=== PATIENT | male | born 1990 ===

== ENCOUNTER 2018-01-03 06:32 | Inpatient (IN) | payer MEDICAID, OTHER ==
[2018-01-03 06:35] VITALS: BMI 25.8
--- NOTE | 2018-01-03 07:08 | ED PDOC ---
Arrival/HPI - General Chief Complaint: Psychiatric Evaluation Time Seen by Provider: 01/03/18 06:58 - History of Present Illness Narrative History of Present Illness (Text): 01/03/18 07:01 27 y/o M w/ h/o substance(cocaine) abuse presenting to the Emergency Department as a transfer from [facility] for psychiatric stabilization. The patient presented on 01/02/18 with feelings of depression after a cocaine binge. He was noted to have acute signs of cocaine intoxication and noted to possess thoughts of suicidal ideation. He was medical cleared signing voluntary consent for transfer to [facility] for psychiatric stabilization. The patient complains of no chest pain, shortness of breath, headaches, nausea/emesis, abdominal pain, back pain or any other somatic complaints at this time. Time/Duration: Prior to Arrival Symptom Onset: Sudden Symptom Course: Unchanged Activities at Onset: Rest Context: Other (Transfer from outside hospital) Past Medical History - Provider Review Nursing Documentation Reviewed: Yes - Travel History Have you recently traveled outside [place] w/in the past 3 mons?: No - Psychiatric Hx Substance Use: Yes (cocaine) - Anesthesia Hx Anesthesia: No Family/Social History - Physician Review Nursing Documentation Reviewed: Yes Family/Social History: No Known Family HX Smoking Status: Never Smoked Hx Alcohol Use: Yes Frequency of alcohol use: Socially Hx Substance Use: Yes (cocaine) Allergies/Home Meds Allergies/Adverse Reactions: Allergies No Known Allergies Allergy (Verified 01/03/18 06:35) Home Medications: Home Meds Medication Instructions Recorded Confirmed No Known Home Med 01/03/18 01/03/18 Review of Systems - Physician Review All systems were reviewed & negative as marked: Yes - Review of Systems Constitutional: absent: Fevers Eyes: absent: Vision Changes Respiratory: absent: SOB Cardiovascular: absent: Chest Pain Gastrointestinal: absent: Abdominal Pain Musculoskeletal: absent: Back Pain, Myalgias Skin: absent: Rash Neurological: absent: Headache, Dizziness Psychiatric: absent: Anxiety Physical Exam Vital Signs Reviewed: Yes Vital Signs Temp Pulse Resp BP Pulse Ox 01/03/18 06:36 98.0 F 78 18 132/94 H 100 Temperature: Afebrile Blood Pressure: Normal Pulse: Regular Respiratory Rate: Normal Appearance: Positive for: Well-Appearing, Non-Toxic, Comfortable Mental Status: Positive for: Alert and Oriented X 3 - Systems Exam Head: Present: Atraumatic, Normocephalic Pupils: Present: PERRL Extroacular Muscles: Present: EOMI Conjunctiva: Present: Normal Mouth: Present: Moist Mucous Membranes Neck: Present: Normal Range of Motion. No: Paraspinal Tenderness Respiratory/Chest: Present: Clear to Auscultation, Good Air Exchange. No: Respiratory Distress, Accessory Muscle Use Cardiovascular: Present: Regular Rate and Rhythm, Normal S1, S2. No: Murmurs Abdomen: Present: Normal Bowel Sounds. No: Tenderness, Distention Upper Extremity: Present: Normal Inspection. No: Cyanosis, Edema Lower Extremity: Present: Normal Inspection. No: Edema Neurological: Present: GCS=15, CN II-XII Intact, Speech Normal Skin: Present: Warm, Dry, Normal Color. No: Rashes Psychiatric: Present: Alert, Oriented x 3, Normal Concentration Medical Decision Making ED Course and Treatment: 01/03/18 07:11 Progress Notes Review of forms show patient has no medical history with no acute somatic complaints at this time. He is stable for psychiatric transfer to the floor. Disposition/Present on Arrival - Present on Arrival Any Indicators Present on Arrival: No History of DVT/PE: No History of Uncontrolled Diabetes: No Urinary Catheter: No History of Decub. Ulcer: No History Surgical Site Infection Following: None - Disposition Have Diagnosis and Disposition been Completed?: Yes Diagnosis: Depression, Suicidal ideation, Substance abuse Disposition: HOSPITALIZED Disposition Time: 07:00 Patient Plan: Admission Condition: STABLE Discharge Instructions (ExitCare): Depression, Adult (DC)
[2018-01-03 07:59] VITALS: O2SAT 99
[2018-01-03] MEDS ORDERED: Magnesium Hydroxide Susp 30 ml UD PO PRN (10:44)
[2018-01-03] MEDS ORDERED: Alum-Mag Hydrox-Simethicone Susp (30 mL) PO PRN (10:44)
--- NOTE | 2018-01-03 12:27 | PCM.BM ---
<Barrett Butler - Last Filed: 01/03/18 12:23> Treatment Plan Problems - Problems identified on initial assessmt Hopelessness/helplessness Date Initiated: 01/03/18 Time Initiated: 09:00 Assessment reference: NA Status: Active Priority: 1 Comment: Feeling depressed Ineffective coping Date Initiated: 01/03/18 Time Initiated: 09:00 Assessment reference: NA Status: Active Priority: 2 Comment: Unable to cope with living situation and stresses Medication nonadhereance Date Initiated: 01/03/18 Time Initiated: 09:00 Assessment reference: NA Status: Active Priority: 3 Comment: No taking medication Drug abuse Date Initiated: 01/03/18 Time Initiated: 09:00 Assessment reference: NA Status: Active Priority: 4 Comment: Cocain and marijuana Treatment assets and liabiliti Patient Assests: ADL independent, negotiates basic needs Patient Liabilities: live alone, poor support system, substance abuse - Milieu Protocol Maintain good personal hygiene: daily Encourage regular showers, daily Assist patient to perform ADL's, every shift Remind patient to perform daily oral care Conduct patient checks and document Observation sheet: Q15 minutes Maintain personal safety: every shift Educate patient to report safety concerns to staff, every shift Monitor environment for contraband/sharps Medication safety: Monitor for expected outcome, potential side effects: every shift, Assess barriers to learning: every shift, Assess readiness for medication education: every shift Discharge/Continuing Care - Education Needs Education Needs: Patient Medication, Patient Diagnosis/Disease Process, Patient Coping Skills, Patient Anger Management skills, Patient Placement options, Patient Community resources, Patient Activities of Daily Living, Patient Nutrition, Patient Health Practices/Safety, Patient Personal Hygiene/Grooming, Patient Aftercare Safety Plan - Discharge Discharge Criteria: Tolerates medication w/o severe side effects, Normal sleep pattern, Ability to care for self, Reduction of target symptoms <Ness Murillo - Last Filed: 01/03/18 14:06> - Diagnosis (1) Depression Status: Acute Interventions: 01/03/18 14:03 Psychoeducation Psychopharmacology/adjustment of medications as needed/ monitoring possible side effects Evaluate pt on daily basis Compliance with medications and follow up appointments Suicide and homicide risk assessment and prevention Relapse prevention Reduction of symptoms Improve functional status Family involvement As outpatient: cognitive behavioral therapy (2) Substance abuse Status: Acute Interventions: 01/03/18 14:05 Monitoring withdrawal symptoms Medical detoxification Pharmacotherapy for alcohol/benzos/opioid dependence Maintaining sobriety Relapse prevention Possible rehabilitation Motivational interviewing 12-step programs: AA meetings
--- NOTE | 2018-01-03 14:02 | PCM.PSYCH ---
Initial Psychiatric Evaluation - Initial Psychiatric Evaluation Type of Admission: Voluntary Legal Status: Capacity (Patient has capacity to sign consent for treatment) Chief Complaint (in patient's own words): "I am here because I am feeling depressed, I don't want to talk now.." Patient's Reaction to Hospitalization: pt was admitted for evaluation of depressive symptoms, possible suicidal ideation, inability to function. History of Present Illness and Precipitating Events: shortly pt is 27 year old male With not known previous psychiatric history, patient was transferred from [facility] for evaluation of depressive symptoms, possible suicidal ideation, patient has history of cocaine and marijuana abuse and dependence, transfer was uneventful, patient requires further evaluation and stabilization and medications titration. Patient was seen and examined, presented to be disheveled, patient refused to participate in treatment team meeting, patient presented to be irritable, annoyed, disengaged. Poor ADLs. Majority of the information was taken from [facility] record. As per record patient was brought to [facility] by the [facility] after she was found walking the streets under the influence of drugs. In the emergency room patient reported being "hopeless, not having a reason to leave". Patient also reported that he has suicidal ideation but denied any plan or intent to kill himself. past psych h/o: unknown, unknown h/o suicidal attempts. medical h/o: pt was seen by medical team in [facility] and in [facility] ED, no acute medical issues. family h/o: unknown. social h/o: pt currently homeless, using marijuana and cocaine, unknown nicotine abuse. labs WNL UA showed blood, will call med consult cocaine and THC positive vitals are stable. EKG NSR Temp Pulse Resp BP Pulse Ox 98 F 75 17 129/87 99 01/03/18 07:57 01/03/18 07:57 01/03/18 09:00 01/03/18 07:57 01/03/18 07:57 The patient failed the outpatient lower level of care: Yes Current Medications: none Present on Admission - Present on Admission Any Indicators Present on Admission: No Review of Systems - Review of Systems Systems not reviewed;Unavailable: Acuity of Condition - Constitutional Constitutional: As Per HPI - EENT Eyes: As Per HPI Ears: As Per HPI Nose/Mouth/Throat: As Per HPI - Cardiovascular Cardiovascular: As Per HPI - Respiratory Respiratory: As Per HPI - Gastrointestinal Gastrointestinal: As Per HPI - Genitourinary Genitourinary: As Per HPI - Reproductive: Male Reproductive:Male: As Per HPI - Musculoskeletal Musculoskeletal: As Per HPI - Integumentary Integumentary: As Per HPI - Neurological Neurological: As Per HPI - Psychiatric Psychiatric: As Per HPI - Endocrine Endocrine: As Per HPI - Hematologic/Lymphatic Hematologic: As Per HPI Past Patient History - Past Psychiatric History Prior Professional Help: unknonw Prior Psychiatric Treatment: unknonw At [facility] hospital: unknonw Duration: unknonw Nature of Treatment: unknonw Explanation of prior treatment: unknonw - PSYCHIATRIC Hx Psychophysiologic Disorder: Yes (substance abuse, pt refused to participate in interview) Hx Substance Use: Yes (cocaine) - SURGICAL HISTORY Hx Surgeries: No - ANESTHESIA Hx Anesthesia: No - Medical/Surgical History Reviewed & confirmed: by ga Meds Allergies/Adverse Reactions: Allergies Allergy/AdvReac Type Severity Reaction Status Date / Time No Known Allergies Allergy Verified 01/03/18 06:35 Mental Status Examination - Personal Presentation Personal Presentation: Looks stated age - Affect Affect: Flat - Motor Activity Motor Activity: Psychomotor Retardation - Reliability in Providing Information Reliability in Providing Information: Other (refused to talk) - Speech Speech: Organized - Mood Mood: Depressed - Cognitive Functions Orientation: Person Sensorium: Drowsy Attention/Concentration: Easily distracted Abstract Thinking: [place] Estimate of Intelligence: Below average Judgement: Intact, as evidence by: Insight regarding need for hospitalization - Risk Risk: Suicidal, Withdrawal, Self-mutilation, Diminished functioning - Strength & Assets Inventory Strength & Assets Inventory: Other (pt is relatively healthy, no major medical issues) - Limitations Limitations: Other (poor social support, substance abuse, homelessness) Psychiatric Physical Exam - Physical Exam Reviewed and confirmed: Emergency Department Physical Exam Results - Vital Signs Recent Vital Signs: Last Vital Signs Temp 98 F 01/03/18 07:57 Pulse 75 01/03/18 07:57 Resp 19 01/03/18 07:57 BP 129/87 01/03/18 07:57 Pulse Ox 99 01/03/18 07:57 - EKG Data EKG Interpreted by: ER Physician EKG shows normal: Sinus rhythm DSM Plan - DSM 5 DSM 5 Diagnosis: r/o MDD r/o substance induced mood disorder cocaine abuse/cannabis abuse - Recommended/Plan of Treatment Treatment Recommendations and Plan of Treatment: Milieu/structure/supportive therapy Medical consult will be called, UA showed blood SW consultation for discharge plan and social issues Med management, will start PRN meds Family involvement Follow up on labs Will monitor closely Pt was educated about risk/benefits and alternatives of medications, coping strategies (safety plan, suicide prevention), relapse prevention, importance of follow up with psychiatrist and therapist, stay away from drugs/alcohol/smoking Projected ELOS: 7days Prognosis: guarded Discharge Plan and Discharge Criteria: Pt will be not depressed or manic, will be more hopeful, will be not psychotic or anxious, will be not having thoughts of harming self or others, will be tolerating medications well, will not have major side effects, will be able to function, will not pose threat to self or others. - Tobacco Cessation Tobacco Use Treatment Practical Counseling Provided: No Reason for not providing: pt refused to participate Tobacco Use Treatment FDA-Approved Cessation Medication Provided: No - Alcohol or Substance Abuse Does the patient have an Alcohol or Substance Abuse Disorder: Yes Initial Psych Certification - Initial Certification I certify that the inpatient psychiatric facility admission was medically necessary for either: Treatment which could reasonbly be expected to improve pt's condition I estimate of hospitalization is necessary for proper treatment of the patient: 7 Unit of Time: Days My plans for post-hospital care for this patient are: inpatient rehab
[2018-01-03] MEDS: Multivitamin With Minerals Tab PO SCH (15:46)
[2018-01-04 07:25] VITALS: PULSE 64; RESP 20
[2018-01-04 08:17] LABS: BASO # 0.03 K/mm3 (0.0-2.0); BASO % 0.4 % (0.0-3.0); EOS # 0.5 (0.0-0.7); EOS % 6.7 % (1.5-5.0); GRAN # 3.35 (1.4-6.5); GRAN % 41.3 % (50.0-68.0); HEMOGLOBIN 15.9 g/dL (14.0-18.0); LYMPH # 3.6 (1.2-3.4); LYMPH % 44.6 % (22.0-35.0); MEAN CELL VOLUME 88.3 fl (80.0-105.0); MEAN CORPUSCULAR HEMOGLOBIN 30.5 pg (25.0-35.0); MEAN CORPUSCULAR HGB CONC 34.5 g/dl (31.0-37.0); MEAN PLATELET VOLUME 10.4 fl (7.0-11.0); MONO # 0.6 (0.1-0.6); RBC 5.22 10^6/uL (3.5-6.1); RED CELL DISTRIBUTION WIDTH 14.1 % (11.5-14.5); WHITE BLOOD COUNT 8.1 10^3/uL (4.5-11.0)
[2018-01-04 08:23] LABS: ALB/GLOB RATIO 1.1 (1.1-1.8); ALBUMIN 3.9 g/dL (3.0-4.8); ALT/SGPT 154 U/L (7-56); AST/SGOT 101 U/L (17-59); BLOOD UREA NITROGEN 17 mg/dL (7-21); CALCIUM 9.3 mg/dL (8.4-10.5); GFR NON-AFRICAN AMERICAN > 60; HDL CHOLESTEROL 42 mg/dL (29-60)
[2018-01-04 08:33] LABS: LDL CHOLESTEROL 75 mg/dL (0-129)
[2018-01-04 08:42] LABS: FREE T4 1.01 ng/dL (0.78-2.19)
[2018-01-04] MEDS: Multivitamin With Minerals Tab PO SCH (13:35)
--- NOTE | 2018-01-04 14:50 | CP.PCM.CON ---
<PatriziaBrenton sivlerjorge - Last Filed: 01/04/18 15:10> History of Present Illness - History of Present Illness History of Present Illness: Danuta Gibbons, PGY1 Consult Note for Hospitalist Team Reason for consult: Elevated LFT's, hematuria History reviewed and obtained from [facility] medical records This is a a 27 year old single male with substance use and suicidal ideation who initially presented to [facility] on 01/02/18 via EMS after being found walking in the streets altered. He stated he had been thinking about committing suicide for the last three weeks. He admits to not having a home for some time. He stated the people he was living with will no longer accept him and his family members will not talk to him. He denied having a plan for suicide and did not elaborate further on his thoughts beyond feeling hopeless and not having a reason to live. During examination today, patient refused to answer any questions. Our medical team attempted to communicate at 7am, 8am as well as 10:45am and patient refused to answer any questions. 12 point ROS and physical examination unobtainable due to patient refusing. Per medical records from [facility], UDS positive for cocaine and THC, alcohol level < 10, EKG showed NSR at 76bpm, U/A positive for large blood and 10-19 RBC, SGPT/SGOT 108/93 and CXR showed no acute cardiopulmonary process. Review of Systems - Review of Systems Systems not reviewed;Unavailable: Uncooperative Past Patient History - Past Social History Smoking Status: Unknown If Ever Smoked - CARDIAC Hx Cardiac Disorders: No - PULMONARY Hx Respiratory Disorders: No - NEUROLOGICAL Hx Neurological Disorder: No - HEENT Hx HEENT Problems: No - RENAL Hx Chronic Kidney Disease: No - ENDOCRINE/METABOLIC Hx Endocrine Disorders: No - HEMATOLOGICAL/ONCOLOGICAL Hx Blood Disorders: No - INTEGUMENTARY Hx Dermatological Problems: No - MUSCULOSKELETAL/RHEUMATOLOGICAL Hx Musculoskeletal Disorders: No - GASTROINTESTINAL Hx Gastrointestinal Disorders: No - GENITOURINARY/GYNECOLOGICAL Hx Genitourinary Disorders: No - PSYCHIATRIC Hx Psychophysiologic Disorder: Yes (substance abuse, pt refused to participate in interview) Hx Substance Use: Yes (cocaine) - SURGICAL HISTORY Hx Surgeries: No - ANESTHESIA Hx Anesthesia: No Meds Allergies/Adverse Reactions: Allergies Allergy/AdvReac Type Severity Reaction Status Date / Time No Known Allergies Allergy Verified 01/03/18 17:28 - Medications Medications: Current Medications Al Hydrox/Mg Hydrox/Simethicone (Maalox Plus 30 Ml) 30 ml PO DAILY PRN PRN Reason: Indigestion / Heartburn Gabapentin (Neurontin) 300 mg PO TID EDWIGE; Protocol Last Admin: 01/04/18 13:36 Dose: 300 mg Lorazepam (Ativan) 2 mg PO Q6 PRN; Protocol PRN Reason: agitation/anxiety Last Admin: 01/04/18 13:35 Dose: 2 mg Lorazepam (Ativan) 2 mg IM Q6H PRN PRN Reason: Agitation Magnesium Hydroxide (Milk Of Magnesia) 30 ml PO DAILY PRN PRN Reason: Constipation Mirtazapine (Remeron) 15 mg PO HS [facility] Multivitamins/Minerals (Therapeutic-M Tab) 1 tab PO DAILY EDWIGE Last Admin: 01/04/18 13:35 Dose: 1 tab Ziprasidone (Geodon Inj) 20 mg IM Q6H PRN; Protocol PRN Reason: severe agitaiton/psychosis Ziprasidone (Geodon Cap) 20 mg PO Q6H PRN; Protocol PRN Reason: psychosis/agitation Last Admin: 01/04/18 13:37 Dose: 20 mg Physical Exam - Constitutional Additional comments: Refused physical examination Results - Vital Signs Recent Vital Signs: Last Vital Signs Temp 97.9 F 01/04/18 07:24 Pulse 64 01/04/18 07:24 Resp 20 01/04/18 07:24 BP 120/69 01/04/18 07:24 Pulse Ox 99 01/03/18 07:57 - Labs Result Diagrams: 01/04/18 06:51 01/04/18 07:45 Labs: Laboratory Results - last 24 hr 01/04/18 01/04/18 01/04/18 06:51 07:11 07:45 WBC 8.1 RBC 5.22 Hgb 15.9 Hct 46.1 MCV 88.3 MCH 30.5 MCHC 34.5 RDW 14.1 Plt Count 202 MPV 10.4 Gran % 41.3 L Lymph % (Auto) 44.6 H Mcleod % (Auto) 7.0 H Eos % (Auto) 6.7 H Baso % (Auto) 0.4 Gran # 3.35 Lymph # (Auto) 3.6 H Mcleod # (Auto) 0.6 Eos # (Auto) 0.5 Baso # (Auto) 0.03 Sodium Potassium Chloride Carbon Dioxide Anion Gap BUN Creatinine Est GFR ( Amer) Est GFR (Non-Af Amer) Random Glucose Calcium Phosphorus Magnesium Total Bilirubin AST ALT Alkaline Phosphatase Total Creatine Kinase Total Protein Albumin Globulin Albumin/Globulin Ratio Triglycerides Cholesterol LDL Cholesterol Direct HDL Cholesterol Free T4 1.01 TSH 3rd Generation 2.06 Alcohol, Quantitative < 10 01/04/18 01/04/18 07:45 10:50 WBC RBC Hgb Hct MCV MCH MCHC RDW Plt Count MPV Gran % Lymph % (Auto) Mcleod % (Auto) Eos % (Auto) Baso % (Auto) Gran # Lymph # (Auto) Mcleod # (Auto) Eos # (Auto) Baso # (Auto) Sodium 139 Potassium 4.2 Chloride 105 Carbon Dioxide 26 Anion Gap 12 BUN 17 Creatinine 0.8 Est GFR ( Amer) > 60 Est GFR (Non-Af Amer) > 60 Random Glucose 95 Calcium 9.3 Phosphorus 2.9 Magnesium 2.0 Total Bilirubin 0.3 AST 101 H ALT 154 H Alkaline Phosphatase 75 Total Creatine Kinase 152 Total Protein 7.5 Albumin 3.9 Globulin 3.6 Albumin/Globulin Ratio 1.1 Triglycerides 74 Cholesterol 128 L LDL Cholesterol Direct 75 HDL Cholesterol 42 Free T4 TSH 3rd Generation Alcohol, Quantitative Assessment & Plan - Assessment and Plan (Free Text) Assessment: This is a 27 year old male with PMH of polysubstance abuse presenting to hospital for management of suicidal ideation. Medical service has been consulted for elevated LFT's and hematuria. Patient transferred from [facility] for evaluation of depressive/suicidal ideations. Plan: Transaminitis: -AST/ALT is 101/154 -CPK is 152 -Alcohol level <10 -discontinued tylenol -hepatitis panel pending -urine drug screen pending -regular diet for now -will trend LFT's Hematuria: -U/A pending -urine culture pending -consider urology consult following test results Patient seen and discussed with attending, Dr. Mckee <Rajiv Mckee - Last Filed: 01/04/18 15:55> Meds - Medications Medications: Current Medications Al Hydrox/Mg Hydrox/Simethicone (Maalox Plus 30 Ml) 30 ml PO DAILY PRN PRN Reason: Indigestion / Heartburn Gabapentin (Neurontin) 300 mg PO TID EDWIGE; Protocol Last Admin: 01/04/18 13:36 Dose: 300 mg Lorazepam (Ativan) 2 mg PO Q6 PRN; Protocol PRN Reason: agitation/anxiety Last Admin: 01/04/18 13:35 Dose: 2 mg Lorazepam (Ativan) 2 mg IM Q6H PRN PRN Reason: Agitation Magnesium Hydroxide (Milk Of Magnesia) 30 ml PO DAILY PRN PRN Reason: Constipation Mirtazapine (Remeron) 30 mg PO HS [facility] Multivitamins/Minerals (Therapeutic-M Tab) 1 tab PO DAILY EDWIGE Last Admin: 01/04/18 13:35 Dose: 1 tab Oxcarbazepine (Trileptal) 150 mg PO BID EDWIGE; Protocol Quetiapine Fumarate (Seroquel) 50 mg PO HS EDWIGE; Protocol Ziprasidone (Geodon Inj) 20 mg IM Q6H PRN; Protocol PRN Reason: severe agitaiton/psychosis Ziprasidone (Geodon Cap) 20 mg PO Q6H PRN; Protocol PRN Reason: psychosis/agitation Last Admin: 01/04/18 13:37 Dose: 20 mg Results - Vital Signs Recent Vital Signs: Last Vital Signs Temp 97.9 F 01/04/18 07:24 Pulse 64 01/04/18 07:24 Resp 20 01/04/18 07:24 BP 120/69 01/04/18 07:24 Pulse Ox 99 01/03/18 07:57 - Labs Result Diagrams: 01/04/18 06:51 01/04/18 07:45 Labs: Laboratory Results - last 24 hr 01/04/18 01/04/18 01/04/18 06:51 07:11 07:45 WBC 8.1 RBC 5.22 Hgb 15.9 Hct 46.1 MCV 88.3 MCH 30.5 MCHC 34.5 RDW 14.1 Plt Count 202 MPV 10.4 Gran % 41.3 L Lymph % (Auto) 44.6 H Mcleod % (Auto) 7.0 H Eos % (Auto) 6.7 H Baso % (Auto) 0.4 Gran # 3.35 Lymph # (Auto) 3.6 H Mcleod # (Auto) 0.6 Eos # (Auto) 0.5 Baso # (Auto) 0.03 Sodium Potassium Chloride Carbon Dioxide Anion Gap BUN Creatinine Est GFR ( Amer) Est GFR (Non-Af Amer) Random Glucose Calcium Phosphorus Magnesium Total Bilirubin AST ALT Alkaline Phosphatase Total Creatine Kinase Total Protein Albumin Globulin Albumin/Globulin Ratio Triglycerides Cholesterol LDL Cholesterol Direct HDL Cholesterol Free T4 1.01 TSH 3rd Generation 2.06 Alcohol, Quantitative < 10 01/04/18 01/04/18 07:45 10:50 WBC RBC Hgb Hct MCV MCH MCHC RDW Plt Count MPV Gran % Lymph % (Auto) Mcleod % (Auto) Eos % (Auto) Baso % (Auto) Gran # Lymph # (Auto) Mcleod # (Auto) Eos # (Auto) Baso # (Auto) Sodium 139 Potassium 4.2 Chloride 105 Carbon Dioxide 26 Anion Gap 12 BUN 17 Creatinine 0.8 Est GFR ( Amer) > 60 Est GFR (Non-Af Amer) > 60 Random Glucose 95 Calcium 9.3 Phosphorus 2.9 Magnesium 2.0 Total Bilirubin 0.3 AST 101 H ALT 154 H Alkaline Phosphatase 75 Total Creatine Kinase 152 Total Protein 7.5 Albumin 3.9 Globulin 3.6 Albumin/Globulin Ratio 1.1 Triglycerides 74 Cholesterol 128 L LDL Cholesterol Direct 75 HDL Cholesterol 42 Free T4 TSH 3rd Generation Alcohol, Quantitative Attending/Attestation - Attestation I have personally seen and examined this patient.: Yes I have fully participated in the care of the patient.: Yes I have reviewed all pertinent clinical information: Yes Notes (Text): 27 y/o M with PMH of polysubstance abuse, transferred here from [facility] for suicidal ideation and depression. Pt's lab work showed mildly elevated AST and ALT with hematuria, hence the medical consult. Pt is very combative and not co-operating with interview or exam. History was obtained from the chart. Unknown if pt had recent alcohol binge, pt does not respond to questions about abdominal pain, nausea or vomiting. Pt's non- cooperation makes it difficult to put together a better clinical picture. Will send for Hep panel Avoid hepatotoxic medications Send UDOA Hold off on RUQ US for now Will get repeat UA, urine cx. If hematuria persists, consider urology consult Monitor H/H Rest of care by primary team. 01/04/18 15:47
--- NOTE | 2018-01-04 14:52 | PCM.PYCHPN ---
Psychiatric Progress Note - Psychiatric Progress Note Patient seen today, length of contact: 30 minutes Patient Chief Complaint: "nontender few business, why so many people are here?" Problems Identified/Issues Discussed: Suicide/ homicide prevention, past psychiatric h/o, current psychiatric symptoms, medical problems, risk/benefits and alternatives of medications, medic ations compliance, coping strategies, substance abuse h/o, relapse prevention, importance of follow up with psychiatrist and therapist, discharge plan. Medical Problems: patient reported being healthy Diagnostic Results: 01/04/18 06:51 01/04/18 07:45 Lab Results 01/04/18 10:50: Total Creatine Kinase 152 01/04/18 07:45: Sodium 139, Potassium 4.2, Chloride 105, Carbon Dioxide 26, Anion Gap 12, BUN 17, Creatinine 0.8, Est GFR ( Amer) > 60, Est GFR (Non- Af Amer) > 60, Random Glucose 95, Calcium 9.3, Phosphorus 2.9, Magnesium 2.0, Total Bilirubin 0.3, AST 101 H, ALT 154 H, Alkaline Phosphatase 75, Total Protein 7.5, Albumin 3.9, Globulin 3.6, Albumin/Globulin Ratio 1.1, Triglycerides 74, Cholesterol 128 L, LDL Cholesterol Direct 75, HDL Cholesterol 42 01/04/18 07:45: Free T4 1.01, TSH 3rd Generation 2.06 01/04/18 07:11: Alcohol, Quantitative < 10 01/04/18 06:51: WBC 8.1, RBC 5.22, Hgb 15.9, Hct 46.1, MCV 88.3, MCH 30.5, MCHC 34.5, RDW 14.1, Plt Count 202, MPV 10.4, Gran % 41.3 L, Lymph % (Auto) 44.6 H, Sanders % (Auto) 7.0 H, Eos % (Auto) 6.7 H, Baso % (Auto) 0.4, Gran # 3.35, Lymph # (Auto) 3.6 H, Sanders # (Auto) 0.6, Eos # (Auto) 0.5, Baso # (Auto) 0.03 Vital Signs Temp Pulse Resp BP Pulse Ox 01/04/18 07:24 97.9 F 64 20 120/69 01/03/18 15:11 71 116/71 01/03/18 09:00 17 01/03/18 07:57 98 F 75 19 129/87 99 01/03/18 07:35 130/83 01/03/18 07:26 98 F 67 19 132/94 H 97 01/03/18 06:36 98.0 F 78 18 132/94 H 100 DSM 5 Symptoms Update: shortly pt is 27 year old male With not known previous psychiatric history, patient was transferred from [facility] for evaluation of depressive symptoms, possible suicidal ideation, patient has history of cocaine and marijuana abuse and dependence, transfer was uneventful, patient requires further evaluation and stabilization and medications titration. Patient was seen and examined today in his room, overnight patient was agitated, needed to be medicated, patient presented to be annoyed, disengaged, disrespectful, strong antisocial personality traits. Majority of the answers were "none of your business". Overnight patient refused to stay with his roommate,, pulled the mattress and wanted to sleep in the hallway, security was called and patient was medicated. As per staff patient is unpredictable, impulses are not controlled. Patient said that he is hearing voices,, patient would make statements such as "me myself and I". h/o suicidal attempts, "more than five", pt "I don't remember when and what methods", by the end "I used [place] Roulette", when was asked if he has access to guns, pt said angry "none of your business", used profanity, needs constant redirection. pt said he was filling meds in [facility] in [place], but as per record from [facility] pt was only on abx once, no psychotrocpc meds pt said he is more than 10 psychiatric admissions, patient reported that he was doing well on Trileptal, Remeron, Neurontin. Willing to take medications. Impression: Rule out schizoaffective Rule out substance-induced mood disorder Rule out antisocial personality disorder Rule out bipolar spectrum disorder Medication Change: Yes (Remeron at the nighttime, needs constant resumed, Trileptal resumed) Medical Record Reviewed: Yes Consults ordered or reviewed: Patient is healthy, has good appetite, no major medical issues Mental Status Examination - Cognitive Function Orientation: Person Memory: Intact Attention: Poor Concentration: Poor Association: Loose Fund of Knowledge: Poor - Mood Mood: Depressed - Affect Affect: Flat - Formal Thought Process Formal Thought Process: Paranoia (patient was guarded) - Suicidal Ideation Suicidal Ideation: No - Homicidal Ideation Homicidal Ideation: No Goal/Treatment Plan - Goal/Treatment Plan Need for Continued Stay: Remain at risks for inpatient hospitalization, Severe depression anxiety, Discharge may exacerbated symptoms, Severe functional impairment Progress Toward Problem(s) and Goals/Treatment Plan: Milieu/structure/supportive therapy Medical consult will be called, UA showed blood SW consultation for discharge plan and social issues Remeron 15mg hs for depression and insomnia neurontin 300mg po tid for mood stabilization trileptal 150mg po bid for mood stabilization seroquel will be started will start PRN meds Family involvement Follow up on labs Will monitor closely Pt was educated about risk/benefits and alternatives of medications, coping strategies (safety plan, suicide prevention), relapse prevention, importance of follow up with psychiatrist and therapist, stay away from drugs/alcohol/smoking Estimated Date of D/C: 01/11/18
[2018-01-04 16:10] LABS: HEPATITIS B SURFACE AG Negative (NEGATIVE)
[2018-01-04 16:16] LABS: HEPATITIS A IGM NEGATIVE (NEGATIVE); HEPATITIS B CORE AB NEGATIVE (NEGATIVE)
[2018-01-04 18:37] LABS: HEPATITIS C ANTIBODY REACTIVE (NEGATIVE)
--- NOTE | 2018-01-04 20:18 | CARD ---
APPROVED REPORT Date of service: 01/04/2018 EKG Measurement Heart [id number] <Conclusion> Normal sinus rhythm Normal ECG
[2018-01-05 07:24] VITALS: BP 112/73; TEMP 98.1
[2018-01-05 08:27] LABS: ALB/GLOB RATIO 1.1 (1.1-1.8); ALT/SGPT 150 U/L (7-56); AST/SGOT 92 U/L (17-59); BLOOD UREA NITROGEN 19 mg/dL (7-21); CALCIUM 9.4 mg/dL (8.4-10.5); GFR NON-AFRICAN AMERICAN > 60
[2018-01-05 08:30] LABS: BASO # 0.04 K/mm3 (0.0-2.0); BASO % 0.4 % (0.0-3.0); EOS # 0.5 (0.0-0.7); EOS % 5.5 % (1.5-5.0); GRAN # 3.79 (1.4-6.5); GRAN % 40.5 % (50.0-68.0); LYMPH # 4.4 (1.2-3.4); LYMPH % 46.7 % (22.0-35.0); MEAN CELL VOLUME 88.7 fl (80.0-105.0); MEAN CORPUSCULAR HEMOGLOBIN 30.6 pg (25.0-35.0); MEAN CORPUSCULAR HGB CONC 34.5 g/dl (31.0-37.0); MONO # 0.6 (0.1-0.6); MONO % 6.9 % (1.0-6.0); RBC 5.23 10^6/uL (3.5-6.1); RED CELL DISTRIBUTION WIDTH 13.9 % (11.5-14.5); WHITE BLOOD COUNT 9.3 10^3/uL (4.5-11.0)
--- NOTE | 2018-01-05 09:09 | CP.PCM.PCO ---
Physician Communication Note - Physician Communication Note Physician Communication Note: Pt is pscyhiatrically stable for discharge
--- NOTE | 2018-01-05 14:45 | CP.PCM.PN ---
Subjective - Date & Time of Evaluation Date of Evaluation: 01/05/18 Time of Evaluation: 08:00 - Subjective Subjective: Danuta Gibbons, PGY1 Medicine Progress Note Patient seen but continues to be selectively mute. ROS and exam unobtainable due to patient refusal. Objective - Vital Signs/Intake and Output Vital Signs (last 24 hours): Temp Pulse Resp BP Pulse Ox 98.1 F 64 20 112/73 99 01/05/18 07:23 01/05/18 07:23 01/05/18 07:23 01/05/18 07:23 01/03/18 07:57 - Labs Labs: 01/05/18 08:00 01/05/18 08:00 - Additional Findings Additional findings: Exam unobtainable due to patient refusal. Assessment and Plan - Assessment and Plan (Free Text) Assessment: This is a 27 year old male with PMH of polysubstance abuse presenting to hospital for management of suicidal ideation. Medical service has been consulted for elevated LFT's and hematuria. Patient transferred from [facility] for evaluation of depressive/suicidal ideations. Plan: Transaminitis: -AST/ALT is 92/150 from 101/154. Mildly improving, consider likely 2/2 dehydration -CPK is 152 -Alcohol level <10 -discontinued tylenol -hepatitis panel unremarkable -avoid nephrotoxic agents Hematuria: -unable to follow up, consider follow up urinalysis Patient has vital signs and has downtrending LFT's. Recommend follow up LFT blood work in two weeks. Patient seen and discussed with attending, Dr. Bowens
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
== END 2018-01-05 12:03 | disposition home or self-care (01) | DRG 881 ==
LOC: ED 06:32 → ERH 06:58 → PSYC 08:29
PROVIDERS: ADMIT Psychiatry & Neurology Psychiatry; ATTEND Psychiatry & Neurology Psychiatry
PROC: GZ3ZZZZ Medication Management (ICD-10-PCS; principal; 2018-01-03)
DX: F32.9 Major depressive disorder, single episode, unspecified (principal); F14.20 Cocaine dependence, uncomplicated; R45.851 Suicidal ideations; F12.20 Cannabis dependence, uncomplicated; F60.2 Antisocial personality disorder; G47.00 Insomnia, unspecified; Z59.0 Homelessness